=== PATIENT | male | born 1995 | race Caucasian/White ===

== ENCOUNTER 2019-05-24 16:04 | Emergency (ER) | payer OTHER ==
[~2019-05-24] VITALS: Ht 167.6 cm; Wt 81.6 kg
[2019-05-24 16:05] VITALS: BP_SYST 150
[2019-05-24 17:36] VITALS: BP_SYST 150
== END 2019-05-24 17:35 | disposition home or self-care (01) ==
LOC: SED 16:04
DX: S62.327A Displaced fracture of shaft of fifth metacarpal bone, left hand, initial encounter for closed fracture (principal); W22.01XA Walked into wall, initial encounter; Y93.89 Activity, other specified; Y92.89 Other specified places as the place of occurrence of the external cause; Y99.8 Other external cause status
CPT/HCPCS: 99283